=== PATIENT | male | born 1960 | race Two or more races ===

== ENCOUNTER → 2018-08-31 | Outpatient (CLI) | payer OTHER ==
[~2018-08-31] MED LIST: AMLO-150 PO; APIX5TAB PO; ATOR20TA37 PO; DABI150C PO; FAMO-79 PO; FLEC100T PO; OMNIPAQUE 350 MG/ML, 150 ML BOTTLE ONE; PANT40TA5 PO; TRAM50TA2 PO
== END | disposition home or self-care (01) ==
LOC: CFH 09:36
PROVIDERS: ATTEND Internal Medicine Cardiovascular Disease
DX: I48.0 Paroxysmal atrial fibrillation (principal)
CPT/HCPCS: 71046; 75572; Q9967

== ENCOUNTER 2018-09-01 06:17 | Observation (INO) | payer OTHER ==
[2018-08-31 12:47] VITALS: BP 133/83
[~2018-09-01] VITALS: Ht 170.2 cm; Wt 78.9 kg
[~2018-09-01 06:17] MED LIST changes: -APIX5TAB PO; -DABI150C PO; -OMNIPAQUE 350 MG/ML, 150 ML BOTTLE ONE
[2018-09-01] MEDS ORDERED: SODIUM CHLORIDE 0.9% 1,000 ML IV SCH (06:36)
[2018-09-01] MEDS ORDERED: SODIUM CHLORIDE 0.9% 1,000 ML IV ONE (07:00)
[2018-09-01] MEDS ORDERED: MIDAZOLAM 1 MG/ML, 2ML ONE (07:38)
[2018-09-01] MEDS ORDERED: FENTANYL PF 250 MCG/5ML ONE (07:38)
[2018-09-01] MEDS ORDERED: PROPOFOL 50 ML ONE (07:38)
[2018-09-01] MEDS ORDERED: HEPARIN 1,000 UNITS/ML, 10ML ONE (07:40)
[2018-09-01] MEDS ORDERED: ISOPROTERENOL 0.2MG/ML, 5ML ONE (07:40)
[2018-09-01] MEDS ORDERED: PROTAMINE SULFATE 10 MG/ML, 5ML ONE (07:41)
[2018-09-01] MEDS ORDERED: LIDOCAINE 2%, 20ML ONE (07:42)
[2018-09-01] MEDS ORDERED: ONDANSETRON 2MG/ML, 2ML ONE (07:58)
[2018-09-01] MEDS ORDERED: ROCURONIUM 10 MG/ML,10ML ONE (07:58)
[2018-09-01] MEDS ORDERED: SUCCINYLCHOLINE 20 MG/ML, 10ML ONE (07:58)
[2018-09-01] MEDS ORDERED: DEXAMETHASONE 4 MG/ML, 1ML ONE (07:58)
[2018-09-01] MEDS ORDERED: ONDANSETRON ODT 8 MG PO PRN (10:00)
[2018-09-01] MEDS ORDERED: EPHEDRINE 50 MG/ML, 1ML IM PRN (10:00)
[2018-09-01] MEDS ORDERED: MIDAZOLAM 1 MG/ML, 2ML IV PRN (10:00)
[2018-09-01] MEDS ORDERED: MEPERIDINE/PF 25MG/0.5ML IVPush PRN (10:00)
[2018-09-01] MEDS ORDERED: PROMETHAZINE 25 MG/ML, 1ML IV PRN (10:00)
[2018-09-01] MEDS ORDERED: OXYcodone 5 MG/5 ML ORAL.SOL UDC PO PRN (10:00)
[2018-09-01] MEDS ORDERED: PROMETHAZINE 12.5 MG SUPP PR PRN (10:00)
[2018-09-01] MEDS ORDERED: PROMETHAZINE 25 MG SUPP PR PRN (10:00)
[2018-09-01] MEDS ORDERED: MORPHINE SULFATE 4 MG/ML, 1ML IVPush PRN (10:00)
[2018-09-01] MEDS ORDERED: DIPHENHYDRAMINE 50 MG/ML, 1ML IVPush PRN (10:00)
[2018-09-01] MEDS ORDERED: ACETAMINOPHEN 325 MG TABLET PO PRN ×2 (10:00→10:30)
[2018-09-01] MEDS ORDERED: FENTANYL PF 100 MCG/2ML IV PRN (10:00)
[2018-09-01] MEDS ORDERED: ONDANSETRON 2MG/ML, 2ML IV PRN (10:00)
[2018-09-01] MEDS ORDERED: EPHEDRINE 50 MG/ML, 1ML IVPush PRN (10:00)
[2018-09-01] MEDS ORDERED: ZOLPIDEM 5MG TABLET PO PRN (10:30)
[2018-09-01] MEDS ORDERED: APIXABAN 5 MG TABLET ONE (11:19)
[2018-09-01] MEDS: APIXABAN 5 MG TABLET PO SCH ×2 (11:39→20:52)
[2018-09-01 12:23] VITALS: BP 98/61
[2018-09-01 14:00] VITALS: BP 101/64
[2018-09-01 20:24] VITALS: BP 122/73
[2018-09-01] MEDS: FLECAINIDE 100MG TABLET PO SCH (20:53)
[2018-09-01] MEDS ORDERED: ATORVASTATIN 20 MG TABLET PO SCH (21:00)
[2018-09-02 01:45] VITALS: BP 123/70
[2018-09-02 07:26] VITALS: BP 129/80
[2018-09-02] MEDS ORDERED: APIX5TAB PO ×2 (08:30)
[2018-09-02] MEDS: APIXABAN 5 MG TABLET PO SCH (08:37)
[2018-09-02] MEDS: FLECAINIDE 100MG TABLET PO SCH (08:37)
[2018-09-02] MEDS ORDERED: AMLODIPINE 5 MG TABLET PO SCH (09:00)
[2018-09-02] MEDS ORDERED: PANTOPROZOLE 40MG TABLET PO SCH (09:00)
[2018-09-02] MEDS ORDERED: DABI150C PO (10:58)
== END 2018-09-02 11:10 | disposition home or self-care (01) ==
LOC: CACL 06:17 → ORIP 10:08 → 5SO 12:20 → DCLOUNGE 09-02 10:35
PROVIDERS: ADMIT Internal Medicine Cardiovascular Disease; ATTEND Internal Medicine Cardiovascular Disease
DX: I48.91 Unspecified atrial fibrillation (principal); Z79.01 Long term (current) use of anticoagulants
CPT/HCPCS: 85347; 93308; 93312; 93321; 93325; 93613; 93655; 93656; 93662; C1730; C1732; C1759; C1766; C1893; C1894; G0378; J0330; J1100; J1644; J2250; J2405; J2704; J2720; J3010; J3490; Q9967